=== PATIENT | male | born 1975 | race Caucasian/White ===

== ENCOUNTER → 2017-08-16 | Outpatient (CLI) | payer MEDICARE, MEDICAID ==
[~2017-08-16] MED LIST: FLUT16SP22 NS; LRT10T PO
--- NOTE | 2017-08-16 12:11 | Diagnostic Imaging Report ---
INDICATION: Injury to left foot. EXAMINATION: Left foot, 3 views. FINDINGS: There are no fractures. No dislocations. The articulating surfaces are smooth. The joint spaces are well-preserved. IMPRESSION: Normal left foot. Dictated by: Dictated on workstation # [id number]
== END ==
LOC: RAD 11:18
PROVIDERS: ATTEND Nurse Practitioner Family
DX: S99.922A Unspecified injury of left foot, initial encounter (principal)
CPT/HCPCS: 73630